=== PATIENT | female | born 2000 | race Caucasian/White ===

== ENCOUNTER 2024-09-11 22:51 | Emergency (ER) | payer OTHER, SELFPAY ==
--- OUTSIDE RECORDS SUMMARY | 2024-09-11 22:52 | XMS REPORT | Continuity of Care Document ---
Author Name Unknown Address [address] [facility] [place] [address] [facility] thconnect Address [address] [facility] [place] [address] Care Team Providers Care Disaster Recovery Consultant Name Role Phone [email or web address] Attending Clinician Unavaila ble MARIA [email or web address]_Kadiyala_S Admitting Clinician Unavaila ble Payers Payer Name Policy Type Policy Number Effective Date Expirati on Date Source Allergies, Adverse Reactions, Alerts Allergy Name Allergy Type Status Severity Reaction(s) Onset Date Inactive Date Treating Clinician Comments Source ibuprofe n DA Active 2017-08 00:00: 00 [facility] ib[facility]rofe [facility] DA Active SV 03-17 00:00: 00 [facility] Encounters Start Date/Time End Date/Time Encounter Type Admission Type Attending Clinicians Care Facility Care Department Encounter ID Source 2023-06-03 00:00:00 2023-06-03 00:00:00 Outpatient [email or web address] diyala_S PRIV PRIV [id number] [facility] 2023-06-02 00:00:00 2023-06-02 00:00:00 Outpatient [email or web address] margaret_Krista [facility] [id number] [facility]
[2024-09-12 01:08] LABS: Specific Gravity 1.026 (1.005-1.030); Sqamous Epithelial <5 /HPF (None Seen); Urine Bacteria None Seen /HPF (<20); Urine Bilirubin NEGATIVE (Negative); Urine Blood Trace (Negative); Urine Clarity Clear (Clear); Urine Color Yellow (Yellow); Urine Culture Reflex Order NOT NEEDED; Urine Glucose NEGATIVE (Negative); Urine Ketones NEGATIVE (Negative); Urine Microscopic Reflex YN ORDER UMIC; Urine Mucus Slight /HPF (None Seen); Urine Nitrite NEGATIVE (Negative); Urine Protein NEGATIVE (Negative); Urine RBC <5 /HPF (None Seen); Urine Urobilinogen Normal (Normal); Urine WBC <5 /HPF (<5)
[2024-09-12 01:09] LABS: Specific Gravity 1.026 (1.005-1.030)
[2024-09-12 01:22] LABS: SARS-CoV-2 Antigen CONTROL BLUE LINE VIS/BG OK; SARS-CoV-2 Antigen Rapid Res Negative (Negative)
--- NOTE | 2024-09-12 01:26 | EDPHYS ---
Physician Documentation [facility] Name: Taina Alston Age: 24 yrs Sex: Female : 2000 Arrival Date: 09/11/2024 Time: 22:51 Bed 12 Private MD: ED Physician Gregg Tijerina HPI: 09/11 23:35 This 24 yrs old Female presents to ER via Ambulatory with complaints of Breathing cp Difficulty. 23:35 The patient has shortness of breath at rest. Onset: The symptoms/episode began/occurred cp gradually. Associated signs and symptoms: Pertinent positives: chest pain, non-productive cough, fever, Pertinent negatives: vomiting. Severity of symptoms: in the emergency department the symptoms are unchanged despite home interventions. 23:35 Currently taking prescribed Zithromax since Friday with no improvement. 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 - Infectious Disease History:: Denies. - Social history:: Smoking status: Reported history of juuling and/or vaping. ROS: 23:40 Eyes: Negative for injury, pain, redness, and discharge, cp 23:40 Constitutional: Positive for fever, 23:40 Cardiovascular: Positive for chest pain, with cough, 23:40 Respiratory: Positive for cough, "sounds productive", shortness of breath, 23:40 Abdomen/GI: Negative for abdominal pain, vomiting, diarrhea, constipation, 23:40 All other systems are negative, Exam: 23:45 Constitutional: The patient appears in no acute distress, alert, awake, cp non-diaphoretic, non-toxic, well developed, well nourished, overweight 23:45 Head/Face: Normocephalic, atraumatic. cp 23:45 Eyes: Periorbital structures: appear normal, Conjunctiva: normal, no exudate, no injection, Sclera: no appreciated abnormality, Lids and lashes: appear normal, bilaterally, 23:45 ENT: External ear(s): are unremarkable, Ear canal(s): are normal, clear, TM's: dullness, bilaterally, Nose: is normal, Mouth: Lips: moist, Oral mucosa: moist, Posterior pharynx: Airway: no evidence of obstruction, patent, Tonsils: no enlargement, no exudate, erythema, that is mild, exudate, is not appreciated, Voice: is normal, 23:45 Neck: ROM/movement: Meningeal signs: are not present, 23:45 Chest/axilla: Inspection: normal, 23:45 Cardiovascular: Rate: normal, 23:45 Respiratory: the patient does not display signs of respiratory distress, Respirations: normal, no use of accessory muscles, no retractions, labored breathing, is not present, Breath sounds: decreased breath sounds, are not appreciated, stridor, is not appreciated, wheezing: is not appreciated, 23:45 Abdomen/GI: Inspection: abdomen appears normal, Palpation: abdomen is soft and non-tender, in all quadrants, 23:45 Back: CVA tenderness, is absent, 23:45 Neuro: Orientation: to person, place \\T\\ time. Mentation: is normal, Motor: moves all fours, strength is normal, Vital Signs: 23:08 BP 119 / 72; Pulse 69; Resp 18 S; Temp 99.2(O); Pulse Ox 100% on R/A; Weight 90.72 kg; ha1 Height 5 ft. 6 in. ; 02 00:30 BP 115 / 71; Pulse 64; Resp 17 S; Pulse Ox 99% on R/A; ha1 0208 23:08 Body Mass Index 32.28 (90.72 kg, 167.64 cm) ha1 MDM: 09/11 23:09 Medical Screening Exam initiated cp 09/12 00:00 Differential diagnosis: Anxiety Reaction asthma, pneumonia, Pneumothorax pulmonary cp edema, Pulmonary Embolism Sepsis. 01:25 Data reviewed: vital signs, nurses notes, lab test result(s), and as a result, I will cp discharge patient. 01:25 Counseling: I had a detailed discussion with the patient and/or guardian regarding the cp historical points, exam findings, and any diagnostic results supporting the discharge/admit diagnosis, lab results, to return to the emergency department if symptoms worsen or persist or if there are any questions or concerns that arise at home. 01:25 Refusal of service: The patient/guardian displays adequate decision making capability cp and despite a detailed discussion of alternatives, benefits, risks, and consequences refuses: all X-rays. 09/11 23:29 Order name: Influenza Screen (a \\T\\ B); Complete Time: 01:23 cp 09/12 01:23 Interpretation: Reviewed. cp 09/11 23:29 Order name: RSV; Complete Time: 01:23 cp 09/12 01:23 Interpretation: Reviewed. cp 09/11 23:29 Order name: Strep; Complete Time: 01:23 cp 09/12 01:18 Interpretation: Reviewed. 09/11 23:29 Order name: SARS RAPID; Complete Time: 01:23 cp 09/11 23:29 Order name: Urinalysis w/ reflexes; Complete Time: 01:18 cp 09/12 01:23 Interpretation: Normal except: UBLD Trace. 09/11 23:29 Order name: Test, Urine; Complete Time: 01:18 cp 09/12 01:23 Interpretation: Reviewed. 09/12 01:21 Order name: Throat Culture EDMS Administered Medications: No medications were administered Disposition Summary: 09/12/24 01:26 Discharge Ordered Notes: Location: Home cp Problem: new cp Symptoms: are unchanged cp Condition: Stable cp Diagnosis - Shortness of breath cp - Cough cp Followup: cp - With: Private Physician - When: 2 - 3 days - Reason: Recheck today's complaints Discharge Instructions: - Discharge Summary Sheet cp - Shortness of Breath, Adult cp - Cough, Adult cp Forms: - Medication Reconciliation Form cp - Antibiotic Education cp - Prescription Opioid Use cp - Patient Portal Instructions cp - Leadership Thank You Letter cp Signatures: Dispatcher [employer] EDHI Gregg Durham PA PA cp Zo France RN RN ha1 Corrections: (The following items were deleted from the chart) :09/11 23:30 Chest Pa And Lat (2 Views)+[email or web address] ordered. EDHI EDMS 09/12 21:27 20:56 Constitutional: Positive for fever, cp cp 21:27 20:56 Cardiovascular: Positive for chest pain, with cough, cp cp 21:27 20:56 Respiratory: Positive for cough, "sounds productive", shortness of breath, cp cp 21:27 20:56 Abdomen/GI: Negative for abdominal pain, vomiting, diarrhea, constipation, cp cp 21:27 20:56 Eyes: Negative for injury, pain, redness, and discharge, cp cp 21:27 20:56 All other systems are negative, cp cp
--- NOTE | 2024-09-12 01:26 | ER ---
Nurse's Notes [facility] Name: Taina Alston Age: 24 yrs Sex: Female : 2000 Arrival Date: 09/11/2024 Time: 22:51 Bed 12 Private MD: Diagnosis: Shortness of breath;Cough Presentation: 09/11 23:08 Chief complaint: Patient states: NASAL CONGESTION, COUGH, AND DIFFICULTY BREATHING. ha1 ALREADY TAKING ANTIBIOTICS SINCE FRIDAY BUT SYMPTOMS NOT IMPROVING. 23:08 Coronavirus screen: Client denies travel out of the [place] in the last 14 days. Ebola ha1 Screen: No symptoms or risks identified at this time. Initial Sepsis Screen: Does the patient meet any 2 criteria? No. Patient's initial sepsis screen is negative. Does the patient have a suspected source of infection? No. Patient's initial sepsis screen is negative. Risk Assessment: Do you want to hurt yourself or someone else? Patient reports no desire to harm self or others. Onset of symptoms was September 11, 2024. 23:08 Method Of Arrival: Ambulatory ha1 23:08 Acuity: AYDE 4 ha1 Triage Assessment: 23:17 General: Appears uncomfortable, Behavior is calm, cooperative. Pain: Complains of pain ha1 in CHEST WHEN COUGHING Pain currently is 8 out of 10 on a pain scale. Quality of pain is described as aching. Neuro: Level of Consciousness is awake, alert, obeys commands, Oriented to person, place, time, situation. Cardiovascular: Capillary refill < 3 seconds Patient's skin is warm and dry. Respiratory: Reports shortness of breath Airway is patent Respiratory effort is even, unlabored, Respiratory pattern is regular, symmetrical, Onset: The symptoms/episode began/occurred gradually, the patient has mild shortness of breath. Respiratory: Reports cough that is non-productive. GI: No signs and/or symptoms were reported involving the gastrointestinal system. Abdomen is round non-distended. : No signs and/or symptoms were reported regarding the genitourinary system. Derm: Skin is pink, warm \\T\\ dry. Musculoskeletal: Circulation, motion, and sensation intact. Range of motion: intact in all extremities. 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 - Infectious Disease History:: Denies. - Social history:: Smoking status: Reported history of juuling and/or vaping. Screenin/09 00:00 [facility] ED Fall Risk Assessment (Adult) History of falling in the last 3 months, ha1 including since admission No falls in past 3 months (0 pts) Confusion or Disorientation No (0 pts) Intoxicated or Sedated No (0 pts) Impaired Gait No (0 pts) Mobility Assist Device Used No (0 pt) Altered Elimination No (0 pt) Score/Fall Risk Level 0 - 2 = Low Risk Oriented to surroundings, Maintained a safe environment, Educated pt \\T\\ family on fall prevention, incl call for assistance when getting out of bed, Hourly rounding (assess needs \\T\\ fall precautionary measures) done. Abuse screen: Denies threats or abuse. Denies injuries from another. Nutritional screening: No deficits noted. Tuberculosis screening: No symptoms or risk factors identified. Assessment: 09/11 23:17 Reassessment: see triage assessment. 1 09/12 00:30 Reassessment: Patient and/or family updated on plan of care and expected duration. Pain ha1 level reassessed. Patient is alert, oriented x 3, equal unlabored respirations, skin warm/dry/pink. 00:30 Cardiovascular: Rhythm is regular. Respiratory: Reports shortness of breath Airway is ha1 patent Respiratory effort is even, unlabored, Respiratory pattern is regular, symmetrical, Breath sounds with wheezes bilaterally. 01:20 Reassessment: called patient to inform about the need to continue with the plan of 1 care. Patient states" I already have to go back home.". Vital Signs: 09/11 23:08 BP 119 / 72; Pulse 69; Resp 18 S; Temp 99.2(O); Pulse Ox 100% on R/A; Weight 90.72 kg; 1 Height 5 ft. 6 in. ; 09/12 00:30 BP 115 / 71; Pulse 64; Resp 17 S; Pulse Ox 99% on R/A; 1 09/11 23:08 Body Mass Index 32.28 (90.72 kg, 167.64 cm) [facility] ED Course: 09/11 22:56 Patient arrived in ED. ra3 23:03 Gregg Durham PA is PHCP. cp 23:03 Gregg Tijerina MD is Attending Physician. cp 23:08 Patient has correct armband on for positive identification. Bed in low position. Call ha1 light in reach. Side rails up X 1. Provided Education on: plan of care . 23:17 Triage completed. ha1 23:30 Arm band placed on right wrist. ha1 23:43 Radiology exam delayed due to test not completed at this time. md2 23:44 Zo France, RN is Primary Nurse. ha1 09/12 00:14 COVID swab sent to lab. Flu and/or RSV swab sent to lab. Strep swab sent to lab. sa1 00:16 Urine collected: clean catch specimen, clear. sa1 01:06 Test, Urine Sent. sa1 01:06 Urinalysis w/ reflexes Sent. sa1 01:06 SARS RAPID Sent. sa1 01:06 RSV Sent. sa1 01:06 Strep Sent. sa1 01:07 Influenza Screen (a \\T\\ B) Sent. sa1 01:33 No provider procedures requiring assistance completed. Patient did not have IV access ha1 during this emergency room visit. Administered Medications: No medications were administered Medication: 01:33 VIS not applicable for this client. ha1 Outcome: 01:26 Discharge ordered by . cp 01:35 Discharged to home ambulatory, with family, ha1 01:35 Condition: stable 01:35 Discharge instructions given to patient, family, Instructed on discharge instructions, follow up and referral plans. Demonstrated understanding of instructions, follow-up care, instructions given over the phone 01:36 Patient left the ED. ha1 Signatures: Gregg Durham PA PA cp Zo Frnace, RN RN ha1 Kia Patel md2 Haily Piedra ra3 Sultan David sa1
[2024-09-12 01:49] VITALS: TEMP 99.2
[2024-09-12 01:58] VITALS: BP 115/71; O2SAT 99
== END 2024-09-12 01:36 | disposition home or self-care (01) ==
LOC: ER 22:51
DX: R06.02 Shortness of breath (principal); R05.9 Cough, unspecified; Z11.52 Encounter for screening for COVID-19
CPT/HCPCS: 36415; 81001; 81025; 87070; 87081; 87804; 87807; 87811; 99283